=== PATIENT | male | born 1980 | race Caucasian/White ===

== ENCOUNTER 2018-05-18 21:39 | Emergency (ER) | payer MEDICAID ==
[~2018-05-18] VITALS: Ht 177.8 cm; Wt 86.2 kg
[2018-05-18 22:00] VITALS: BP 132/92
== END 2018-05-19 05:13 | disposition left against medical advice (07) ==
LOC: ER 21:41
DX: R07.9 Chest pain, unspecified (principal); Z53.21 Procedure and treatment not carried out due to patient leaving prior to being seen by health care provider
CPT/HCPCS: 93005

== ENCOUNTER 2019-09-13 12:36 | Emergency (ER) | payer MEDICAID ==
[2019-09-13] MEDS ORDERED: EPINEPHrine HCL 1 MG/10 ML SYRG IV ONE (12:37)
[2019-09-13 12:49] VITALS: BP_SYST 0
== END 2019-09-13 13:01 | disposition expired ==
LOC: EDBD 12:36 → ER 12:36
DX: I46.9 Cardiac arrest, cause unspecified (principal); Z88.2 Allergy status to sulfonamides; V23.4XXA Motorcycle driver injured in collision with car, pick-up truck or van in traffic accident, initial encounter; Y93.89 Activity, other specified; Y92.410 Unspecified street and highway as the place of occurrence of the external cause; Y99.8 Other external cause status
CPT/HCPCS: 31500; 92950; 99285; J0171; J7030